=== PATIENT | male | born 1995 | race Caucasian/White ===

== ENCOUNTER 2017-09-23 14:06 | Emergency (ER) | payer BC ==
[2017-09-23 14:31] VITALS: RESP 16; TEMP 98.1
--- NOTE | 2017-09-23 15:52 | EDPHY ---
H & P Time Seen by Provider: 09/23/17 15:28 HPI/ROS: CHIEF COMPLAINT: Pilonidal cyst HISTORY OF PRESENT ILLNESS: 22-year-old immunocompetent male history of recurrent pilonidal cyst, followed by Dr. Xavier Munoz with whom he has an appointment in 4 days had complaining of recurrent pain at the cleft of his buttocks for the past 2 days. Today being Tuesday he was unable to be seen by Dr. Xavier Munoz and therefore comes to the ER. He denies: Fever, chills, pain with defecation, abdominal pain. PHYSICAL EXAM (Prior to examination, patient consented to physical exam, hands were washed and my usual and customary physical exam procedures followed) 1) GENERAL: Well-developed, well-nourished, alert and oriented. Appears to be in no acute distress. 2) HEAD: Normocephalic 3) HEENT: sclera anicteric 4) LUNGS: Breathing comfortably. 5) SKIN: cleft of the buttock he has erythema, fluctuance consistent with abscess. No drainage. Smoking Status: Current some day smoker Constitutional: Initial Vital Signs Temperature (C) 36.7 C 09/23/17 14:24 Heart Rate 93 09/23/17 14:24 Respiratory Rate 16 09/23/17 14:24 Blood Pressure 138/99 H 09/23/17 14:24 O2 Sat (%) 96 09/23/17 14:24 O2 Delivery Mode Room Air Allergies/Adverse Reactions: No Known Allergies Allergy (Unverified 03/03/16 13:03) Home Medications: Medication Instructions Recorded oxyCODONE IR [Oxycodone Ir (RX)] 5 - 10 mg PO Q4 PRN #20 tab 03/03/16 Cephalexin [Keflex] 500 mg PO TID 7 Days cap 09/23/17 oxyCODONE/APAP 5/325 [Percocet 1 tab PO Q6 #10 tab 09/23/17 5/325] MDM/Departure - MDM Procedures: Procedure: Abscess drainage. The patient's abscess was located on the cleft of the buttock. I obtained verbal consent from the patient to drain the abscess who was informed about the possibility of bleeding and pain. Area is prepped draped normal sterile fashion , anesthetized with 1% lidocaine with epinephrine. The abscess was incised with a 11. Scalpel and a mild amount of purulent drainage was expressed, irrigated, packed. The patient tolerated the procedure well. The procedure was performed by myself. ED Course/Re-evaluation: Today is Tuesday. Patient has appoint with Dr. Xavier Munoz on Tuesday for evaluation of same issue. Recommend he keep this appointment. The meantime he is started on Keflex, analgesia, usual customary pilonidal cyst/abscess precautions instructions provided. He feels comfortable being discharged. All questions and concerns addressed by myself.Care of patient under supervision of secondary supervising physician Dr Hoffmann - David Disposition: Home, Routine, Self-Care Clinical Impression: Pilonidal abscess Condition: Good Instructions: Pilonidal Cyst (ED) Additional Instructions: Return to the ER if you have worsening pain, fevers chills or any other symptoms that concern you Prescriptions: Cephalexin [Keflex] 500 mg PO TID 7 Days cap oxyCODONE/APAP 5/325 [Percocet 5/325] 1 tab PO Q6 #10 tab Referrals: Xavier Munoz MD [Medical Doctor] - 09/27/17
[2017-09-23 16:05] VITALS: BP 121/86; PULSE 65; O2SAT 98
== END 2017-09-23 16:05 | disposition home or self-care (01) ==
PROC: 0H98XZZ Drainage of Buttock Skin, External Approach (ICD-10-PCS; principal; 2017-09-23)
DX: L05.01 Pilonidal cyst with abscess (principal); F17.200 Nicotine dependence, unspecified, uncomplicated

== ENCOUNTER 2017-10-13 15:35 | Emergency (ER) | payer BC ==
[2017-10-13] MEDS ORDERED: IBUPROFEN 200 MG TAB PO ONE (16:05)
--- NOTE | 2017-10-13 16:05 | EDPHY ---
H & P Stated Complaint: fall snowboarding - Personal History Current Tetanus/Diphtheria Vaccine: Yes Current Tetanus Diphtheria and Acellular Pertussis (TDAP): Yes Tetanus Vaccine Date: < 10 years - Medical/Surgical History Hx Asthma: No Hx Chronic Respiratory Disease: No Hx Diabetes: No Hx Cardiac Disease: No Hx Renal Disease: No Hx Cirrhosis: No Hx Alcoholism: No Hx HIV/AIDS: No Hx Splenectomy or Spleen Trauma: No Other PMH: PILONIDAL CYST, - Social History Smoking Status: Current some day smoker <Alexandro Bill - Last Filed: 10/13/17 16:47> <Roberto Carlos Dewitt - Last Filed: 10/13/17 18:12> Time Seen by Provider: 10/13/17 15:54 HPI/ROS: CHIEF COMPLAINT: Head injury, headache, neck pain post snowboarding fall HISTORY OF PRESENT ILLNESS: 22-year-old male generally healthy drove himself to the emergency department from [facility] after he was unhelmeted snow boarder, describes snowboarding at a high rate of speed, caught an edge and fell backward impacting the occiput of his head with possible brief loss of consciousness. He was able continue snowboarding to his car. He is complaining midline C-spine pain and a "dull ache" of his left shoulder and left upper extremity with no specific pain to palpation of the left upper extremity. He denies: Midline thoracic, lumbar, sacral pain, chest pain, dyspnea, peripheral paresthesia, weakness, numbness, straddle injury, nausea, vomiting . Patient was placed in a cervical collar triage. REVIEW OF SYSTEMS: A ten point review of systems was performed and is negative with the exception of the items mentioned in the HPI PAST MEDICAL/SURGICAL HISTORY: no anticoagulant use, no relevant medical/ surgical history SOCIAL HISTORY: denies alcohol use at time of incident PHYSICAL EXAM 1) GENERAL: Well-developed, well-nourished, alert and oriented. Appears uncomfortable. Answering questions appropriately. 2) HEAD: Normocephalic, atraumatic 3) HEENT: Pupils equal, round, reactive to light bilaterally. Negative Horners. Nasopharynx, oropharynx, clear. No deformity or angulation of nose. No septal hematoma. No rhinorrhea. No oral trauma. Ears bilaterally with normal tympanic membranes. No hemotympanum. No fluid or blood in the external auditory canal. No raccoon eyes. No Lindsey sign. Teeth are normally aligned with no gross malocclusion, TMJ bilaterally nontender, facial bones nontender including the zygomatic arch, maxilla mandible. 4) NECK: Cervical collar is on.Cervical collar is removed while holding inline traction and patient is unable to completely differentiate between true midline pain versus just lateral of midline pain.Cervical collar is replaced at that point. 5) LUNGS: Clear to auscultation bilaterally, no wheezes, no rhonchi, no retractions. No obvious signs of trauma. No chest wall pain. No flaring, no grunting. Moving symmetrically. No crepitus. 6) HEART: [Regular rate and rhythm, 7) ABDOMEN: No guarding, no rebound, no focal tenderness, no peritoneal signs, no signs of trauma, no ecchymosis 8) MUSCULOSKELETAL: Moving all extremities, no focal areas of tenderness, no obvious trauma. 9) BACK: Patient logrolled while holding inline traction.No midline vertebral tenderness, no fluctuance, no step-off, no obvious trauma, no visual or palpable abnormality. 10) SKIN: No laceration. No abrasion 11) NEURO: Awake, alert, and oriented to person, place and time. Answers questions appropriately. There were no obvious focal neurologic abnormalities. No cerebellar dysfunction. Normal steady gait. Upper and lower extremities bilaterally with strength 5 / 5, reflexes 2+. DIFFERENTIAL DIAGNOSIS: In no particular order my differential includes but is not limited to deep space infection, cervico-cranial vessel disssection, muscle strain. (Landy,Alexandro Whit) Constitutional: Initial Vital Signs Temperature (C) 37 C 10/13/17 15:38 Heart Rate 98 10/13/17 15:38 Respiratory Rate 16 10/13/17 15:38 Blood Pressure 152/90 H 10/13/17 15:38 O2 Sat (%) 97 10/13/17 15:38 O2 Delivery Mode Room Air Allergies/Adverse Reactions: No Known Allergies Allergy (Unverified 10/13/17 15:38) Home Medications: Medication Instructions Recorded HYDROcodone/APAP 10/325 [[place] 1 - 2 each PO Q4-6PRN PRN #20 tab 10/13/17 10/325] Medical Decision Making <Alexandro Bill - Last Filed: 10/13/17 16:47> - Diagnostics Imaging: Discussed imaging studies w/ yardage caller Radiologist <Roberto Carlos Dewitt - Last Filed: 10/13/17 18:12> - Diagnostics Imaging Results: Imaging Impressions Cervical Spine CT 10/13/17 16:00 Impression: 1. No significant intracranial abnormality seen. 2. Normal CT cervical spine. If symptoms worsen, additional imaging may be necessary. Findings discussed with Alexandro Bill PAC at 16:28 hour, 10/13/2017. Head CT 10/13/17 16:00 Impression: 1. No significant intracranial abnormality seen. 2. Normal CT cervical spine. If symptoms worsen, additional imaging may be necessary. Findings discussed with Alexandro Bill PAC at 16:28 hour, 10/13/2017. Shoulder X-Ray 10/13/17 16:05 Impression: Negative. No acute fracture or evidence of AC separation. Cervical Spine MRI 10/13/17 16:42 Impression: Normal. Results discussed with Roberto Carlos Dewitt M.D.. ED Course/Re-evaluation: 4:05 p.m.: Care of patient under supervision of secondary supervising physician Dr Dewitt . 4:45 p.m.: Patient re-evaluated, CT head and C-spine are negative. He continues to complain of left trapezius pain and left deltoid pain without definitive reproducible pain to palpation of the same area. Expressed the patient concern over discogenic etiology.. MRI of the cervical spine will be obtained and Dr. Roberto Carlos Dewitt will follow up on the results. (Alexandro Bill) 17:[address] Stern, radiologist. MRI negative for acute disc herniation. Plan to discharge home in good condition with prescription for [place]. Follow up and return precautions discussed. He is comfortable with this plan. (Roberto Carlos Dewitt) - Data Points Medications Given: Discontinued Medications Cyclobenzaprine HCl (Flexeril) 10 mg PO EDNOW ONE Stop: 10/13/17 16:42 Last Admin: 10/13/17 16:46 Dose: 10 mg Ibuprofen (Motrin) 400 mg PO EDNOW ONE Stop: 10/13/17 16:06 Last Admin: 10/13/17 16:08 Dose: 400 mg Departure <Alexandro Bill - Last Filed: 10/13/17 16:47> <Roberto Carlos Dewitt - Last Filed: 10/13/17 18:12> - Departure Disposition: Home, Routine, Self-Care Clinical Impression: Neck pain Shoulder pain Qualifiers: Chronicity: acute Laterality: left Qualified Code(s): M25.512 - Pain in left shoulder Head injury Qualifiers: Encounter type: initial encounter Qualified Code(s): S09.90XA - Unspecified injury of head, initial encounter Condition: Good Instructions: Hydrocodone/Acetaminophen (By mouth), Head Injury (ED), Shoulder Pain (ED), Neck Pain (ED) Additional Instructions: 1. Follow-up with your primary doctor within 2-3 days for further evaluation. 2. Take Tylenol or Ibuprofen as directed below as needed for pain relief. Take [place] as needed for severe pain. 3. Return to the Emergency Department for severe headache, vomiting, vision changes, confusion, fever, numbness, weakness, tingling, difficulty walking or other complaints. Adult Pain & Fever Control: We recommend Acetaminophen (Tylenol) and Ibuprofen (Motrin,Advil) for pain and fever control. When fever is high or pain severe, both drugs can be used at the same time, but at different intervals. Please note the time differences. Your dose is: Acetaminophen 650mg every 4 to 6 hours Ibuprofen 800mg every 6-8 hours with food Note: do not take Acetaminophen with Hydrocodone (Vicodin, Lortab) or Oxycodone (Percocet). These medications also contain Acetaminophen. No more than 3000mg of Acetaminophen should be taken in 24 hours (for an adult). Referrals: Vasu Holliday MD [Medical Doctor] - As per Instructions Prescriptions: HYDROcodone/APAP 10/325 [[place] 10/325] 1 - 2 each PO Q4-6PRN PRN #20 tab PRN Reason: Pain, Moderate Report Scribed for: Roberto Carlos Dewitt Report Scribed by: Randi Greene Date of Report: 10/13/17 Time of Report: 18:05 <Roberto Carlos Dewitt - Last Filed: 10/13/17 18:12>
[2017-10-13] MEDS ORDERED: CYCLOBENZAPRINE 10 MG TAB PO ONE (16:41)
[2017-10-13 17:58] VITALS: BP 148/93; PULSE 82; RESP 18; O2SAT 95
[2017-10-13 18:14] VITALS: TEMP 98.1
== END 2017-10-13 18:23 | disposition home or self-care (01) ==
DX: S09.90XA Unspecified injury of head, initial encounter (principal); F17.200 Nicotine dependence, unspecified, uncomplicated; S19.9XXA Unspecified injury of neck, initial encounter; S49.92XA Unspecified injury of left shoulder and upper arm, initial encounter; V00.311A Fall from snowboard, initial encounter; Y99.8 Other external cause status; Y93.23 Activity, snow (alpine) (downhill) skiing, snowboarding, sledding, tobogganing and snow tubing